=== PATIENT | female | born 1985 | race Two or more races ===

== ENCOUNTER 2022-04-09 05:56 | Inpatient (IN) | payer OTHER ==
[~2022-04-09] VITALS: Ht 152.4 cm; Wt 2.7 kg
[2022-04-09] MEDS ORDERED: CHILDREN'S ASPI81 MG PO (08:28)
[2022-04-09] MEDS ORDERED: PRENATAL + DHA1 EAC1 PO (08:28)
== END 2022-04-11 12:14 | disposition home or self-care (01) | DRG 788 ==
LOC: LDR 05:56 → OB/GYN 14:19
PROVIDERS: ADMIT Obstetrics & Gynecology; ATTEND Obstetrics & Gynecology
PROC: 4A1HXCZ Monitoring of Products of Conception, Cardiac Rate, External Approach (ICD-10-PCS; 2022-04-09)
PROC: 10D00Z1 Extraction of Products of Conception, Low, Open Approach (ICD-10-PCS; principal; 2022-04-09 13:00)
DX: O36.8130 Decreased fetal movements, third trimester, not applicable or unspecified (principal); Z3A.39 39 weeks gestation of pregnancy; Z37.0 Single live birth; Z20.822 Contact with and (suspected) exposure to COVID-19